=== PATIENT | male | born 1960 | race Caucasian/White ===

== ENCOUNTER 2017-01-11 23:05 | Emergency (ER) | payer SELFPAY ==
[2017-01-11 23:26] VITALS: BP 148/87; PULSE 98; TEMP 98; BMI 26.6
--- NOTE | 2017-01-11 23:47 | PDOC ---
History of Present Illness - General Chief Complaint: Bite Stated Complaint: DOG BITE Time Seen by Provider: 01/11/17 23:45 History Source: Patient Exam Limitations: No Limitations - History of Present Illness Initial Comments: 01/11/17 23:47 This is a 56-year-old male who comes in complaining of a dog bite to his left thigh. Patient said that the dog is known to him in the neighborhood but he is uncertain as to the actual ulnar the dog is. Patient has petted the dog in the past and when he was out walking he stopped and talked with the owner/photographer and weights down to pet the dog after he had at the dog and was turning around to leave the dog jumped at him and bit him on the thigh. Patient said he does not know the tetanus status of the dog. PAST MEDICAL HISTORY: no significant history PAST SURGICAL HISTORY: no significant history FAMILY HISTORY: no pertinant history SOCIAL HISTORY: Pt lives with family and is employed. MEDICATIONS: reviewed ALLERGIES: As per nursing notes Review of Systems General: No fevers or chills, no weakness, no weight loss HEENT: No change in vision. No sore throat,. No ear pain CardioVascular: No chest pain or shortness of breath Respiratory:No cough, or wheezing. Gastrointestinal: no nausea, vomitting, diarrhea or constipation, No rectal bleeding Genitourinary: No dysuria, hematuria, or frequency Musculoskeletal: No joint or muscle pain or swelling Neurologic: No headache, vertigo, dizziness or loss of consciousness Psychiatric: nor depression Skin: No rashes or easy bruising Endocrine: no increased thirst or abnormal weight change Allergic: no skin or latex allergy All other systems reviewed and normal GENERAL: The patient is awake, alert, and fully oriented, in no acute distress. HEAD: Normal with no signs of trauma. EYES: Pupils equal, round and reactive to light, extraocular movements intact, sclera anicteric, conjunctiva clear. EXTREMITIES: Left thigh there is 3 very small superficial abrasions to the left thigh area. There is no puncture wounds and there is no active bleeding at this time. NEUROLOGICAL: Normal speech, normal gait. PSYCH: Normal mood, normal affect. SKIN: Warm, Dry, normal turgor, no rashes or lesions noted. Assessment and plan: This is a 56-year-old male who came in for evaluation of a dog bite. As it turns out the dog that him through his pants and the resulting injury was superficial abrasions. There was no puncture butler or bleeding from the area at the time of my evaluation. I did not start the patient on antibiotics as the wounds were so superficial. Patient was instructed to scrub the wounds and clean them well with soap and water and follow-up with his doctor as needed. Past History - Past Medical History Allergies/Adverse Reactions: Allergies Allergy/AdvReac Type Severity Reaction Status Date / Time No Known Allergies Allergy Unverified 01/11/17 23:26 Home Medications: Ambulatory Orders Clopidogrel Bisulfate [Plavix -] 75 mg PO DAILY 01/11/17 Metformin HCl [Glucophage] 1,000 mg PO BID 01/11/17 Metoprolol Tartrate 50 mg PO BID 01/11/17 Ramipril [Altace] 2.5 mg PO DAILY 01/11/17 Simvastatin 40 mg PO DAILY 01/11/17 Sitagliptin Phosphate [Januvia] 25 mg PO DAILY 01/11/17 Cardiac Disorders: Yes (OK X2) Diabetes: Yes - Surgical History Cardiac Surgery: Yes (STENTS X3) - Psycho/Social/Smoking Cessation Hx Anxiety: No Suicidal Ideation: No Smoking History: Never smoked *Physical Exam - Vital Signs Last Vital Signs Temp Pulse Resp BP Pulse Ox 98 F 98 H 16 148/87 98 01/11/17 23:23 01/11/17 23:23 01/11/17 23:23 01/11/17 23:23 01/11/17 23:23 *DC/Admit/Observation/Transfer Diagnosis at time of Disposition: Dog bite of thigh Qualifiers: Encounter type: initial encounter Laterality: left Qualified Code(s): S71.152A - Open bite, left thigh, initial encounter - Discharge Dispostion Disposition: HOME Condition at time of disposition: Stable - Patient Instructions Printed Discharge Instructions: DI for Animal Bites Additional Instructions: When you get home cleaned the bite well with soap and water. Return to the emergency department immediately with ANY new, persistent or worsening symptoms. Continue any medications as previously prescribed by your physician. You should follow up with your primary doctor as soon as possible regarding today's emergency department visit. . Please make sure your doctor reviews the results of your emergency evaluation. Thank you for coming to the Emergency Department today for your care. It was a pleasure to see you today. Please note that your evaluation is INCOMPLETE until you follow-up with your doctor.
== END 2017-01-11 23:55 | disposition home or self-care (01) ==
LOC: FER 23:05
DX: S70.372A Other superficial bite of left thigh, initial encounter (principal); W54.0XXA Bitten by dog, initial encounter; Y93.89 Activity, other specified; Y92.480 Sidewalk as the place of occurrence of the external cause; I25.10 Atherosclerotic heart disease of native coronary artery without angina pectoris; I10 Essential (primary) hypertension; Z95.5 Presence of coronary angioplasty implant and graft; Z79.01 Long term (current) use of anticoagulants; E11.9 Type 2 diabetes mellitus without complications; Z79.84 Long term (current) use of oral hypoglycemic drugs; E78.00 Pure hypercholesterolemia, unspecified
CPT/HCPCS: 99282-25